=== PATIENT | male | born 1960 | race Hispanic/Latino ===

== ENCOUNTER 2017-06-20 10:33 | Emergency (ER) | payer OTHER ==
--- NOTE | 2017-06-20 11:11 | XRay Report ---
AP CHEST: HISTORY: chest pain AP view of the chest demonstrates a normal mediastinal and cardiac contour with clear lungs and normal bony and soft tissue structures. IMPRESSION: Unremarkable AP chest.
[2017-06-20 11:27] LABS: Basophils # (Auto) 0.1 K/mm3 (0.0-0.1); Basophils % (Auto) 0.5 % (0.0-1.8); Eosinophils # (Auto) 0.3 K/mm3 (0.0-0.4); Eosinophils % (Auto) 2.2 % (0.0-4.3); Hematocrit 42.9 % (35.5-45.6); Hemoglobin 14.1 gm/dl (11.8-15.2); Lymphocytes # (Auto) 1.4 K/mm3 (1.2-5.4); Lymphocytes % (Auto) 11.7 % (13.4-35.0); Mean Corpuscular HGB Conc 33 % (32-34); Mean Corpuscular Hemoglobin 32 pg (28-32); Mean Corpuscular Volume 96 fl (84-94); Monocytes # (Auto) 0.7 K/mm3 (0.0-0.8); Monocytes % (Auto) 5.8 % (0.0-7.3); Platelet Count 175 K/mm3 (140-440); Red Blood Count 4.47 M/mm3 (3.65-5.03); Red Cell Distribution Width 13.9 % (13.2-15.2)
[2017-06-20 12:04] LABS: Alanine Aminotransferase 16 units/L (7-56); Albumin 4.2 g/dL (3.9-5); BUN/Creatinine Ratio 20; Blood Urea Nitrogen 22 mg/dL (9-20); Calcium 9.2 mg/dL (8.4-10.2); Hemolysis Index 15
--- NOTE | 2017-06-20 13:46 | Emergency Department Report ---
ED Chest Pain HPI - General Chief Complaint: Chest Pain Stated Complaint: CHEST PAIN Time Seen by Provider: 06/20/17 11:24 Source: patient, EMS Mode of arrival: Stretcher Limitations: No Limitations - History of Present Illness Initial Comments: Presents with sudden onset left and rightPatient presents with left sided chest pain that radiates to the left arm. Pain is constant, exertional, positional. There are this pain before. Improved with nitroglycerin.. 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 Mild shortness of breath associated with it. Not exertional. Nonpleuritic. He took a nitroglycerin and 162 mg ASA which helped with the pain. Symptoms feel similar to when he had his heart attack over a year ago. Patient has history of 4 stents. He's been compliant with his home medication. Prior to this episode, patient developing normal self. At time of ER presentation, the patient has no chest pain. Severity scale (0 -10): 1 - Related Data Allergies Allergy/AdvReac Type Severity Reaction Status Date / Time No Known Allergies Allergy Unverified 06/20/17 10:55 Heart Score - HEART Score History: Moderately suspicious EKG: Normal Age: 45-65 Risk factors: > 3 risk factors or hx of atherosclerotic disease Troponin: < normal limit HEART Score: 4 ED Review of Systems ROS: Stated complaint: CHEST PAIN Other details as noted in HPI Comment: All other systems reviewed and negative Respiratory: shortness of breath Cardiovascular: chest pain ED Past Medical Hx - Past Medical History Hx Hypertension: Yes Hx Heart Attack/AMI: Yes (X6 Most recent 2017) - Social History Smoking Status: Current Every Day Smoker Substance Use Type: Alcohol ED Physical Exam - General Limitations: No Limitations General appearance: alert, in no apparent distress - Head Head exam: Present: atraumatic, normocephalic - Eye Eye exam: Present: normal appearance - ENT ENT exam: Present: mucous membranes moist - Neck Neck exam: Present: normal inspection - Respiratory Respiratory exam: Present: normal lung sounds bilaterally. Absent: respiratory distress - Cardiovascular Cardiovascular Exam: Present: regular rate, normal rhythm. Absent: systolic murmur, diastolic murmur, rubs, gallop - GI/Abdominal GI/Abdominal exam: Present: soft - Rectal Rectal exam: Present: deferred - Extremities Exam Extremities exam: Present: normal inspection - Back Exam Back exam: Present: normal inspection - Neurological Exam Neurological exam: Present: alert, oriented X3 - Psychiatric Psychiatric exam: Present: normal affect, normal mood - Skin Skin exam: Present: warm, dry, intact, normal color. Absent: rash ED Course Vital Signs 06/20/17 06/20/17 06/20/17 10:32 10:45 10:49 Temperature 97.8 F Pulse Rate 57 L 55 L 57 L Respiratory 12 14 18 Rate Blood Pressure 111/72 111/72 O2 Sat by Pulse 98 97 95 Oximetry 06/20/17 06/20/17 06/20/17 11:00 11:31 12:00 Temperature Pulse Rate 56 L 52 L 48 L Respiratory 15 13 18 Rate Blood Pressure 115/66 105/57 114/70 O2 Sat by Pulse 96 95 97 Oximetry 06/20/17 12:18 Temperature Pulse Rate 56 L Respiratory Rate Blood Pressure O2 Sat by Pulse Oximetry ED Medical Decision Making - Lab Data Result diagrams: 06/20/17 11:05 06/20/17 11:05 - EKG Data -: EKG Interpreted by Me EKG shows normal: sinus rhythm, axis, intervals, QRS complexes, ST-T waves Rate: bradycardia - Radiology Data Radiology results: report reviewed - Medical Decision Making 56-year-old male with multiple comorbidities and presents to the ER with chest pain, now resolved. Patient is moderate risk for heart attack. He is well- appearing and presentation. Vitals are stable. Last significant for prerenal acidemia. Patient states he does not take enough water. Likely etiology is dehydration. EKG is nonischemic. Delta troponin was negative. Discussed with patient about getting a cardiac stress test. He says that he does not live here and that he would prefer to follow up with his family doctor back home. Patient is very familiar with this disease. I thought that this was appropriate. Return process haven't discussed. He is given IV fluids for his dehydration in the ER. Cleared for discharge. - Differential Diagnosis ACS, pericarditis, pneumothorax, pneumonia, costochondritis, muscle strain Critical care attestation.: If time is entered above; I have spent that time in minutes in the direct care of this critically ill patient, excluding procedure time. ED Disposition Clinical Impression: Chest pain Disposition: DC-01 TO HOME OR SELFCARE Is pt being admited?: No Does the pt Need Aspirin: No Condition: Stable Instructions: Chest Pain (ED) Additional Instructions: Please talk with your family doctor about getting a cardiac stress test for further workup of your chest pain. Referrals: PRIMARY CARE,MD [Primary Care Provider] - 3-5 Days
[2017-06-20] MEDS ORDERED: NACL 0.9% 1000 ML 1,000 ML IV ONE (14:05)
[2017-06-20 14:40] VITALS: BP 116/70
== END 2017-06-20 14:41 | disposition home or self-care (01) ==
LOC: ED 10:33
DX: R07.9 Chest pain, unspecified (principal)
CPT/HCPCS: 36415; 71045; 80053; 84484; 85025; 93005; 93010; 96360; 99284; J7030